=== PATIENT | male | born 1945 | race Caucasian/White ===

== ENCOUNTER → 2023-05-16 10:29 | Outpatient (REF) | payer MEDICARE, BC, SELFPAY ==
[2023-05-16 11:40] LABS: ALT (SGPT) 26 U/L (0-50); AST (SGOT) 29 U/L (17-59); Alkaline Phosphatase 81 U/L (38-126); Blood Urea Nitrogen 17 mg/dl (9-20); Calcium 8.8 mg/dl (8.4-10.2); Carbon Dioxide 22 mmol/L (22-30); Chloride 108 mmol/L (98-107); Direct Bilirubin 0.1 mg/dl (0.0-0.4); Glucose 131 mg/dl (70-99); HDL Cholesterol 49 mg/dl; LDL Cholesterol, Calculated 51 mg/dl; Potassium 4.2 mmol/L (3.5-5.1); Sodium 136 mmol/L (135-145); Total Cholesterol 128 mg/dl (50-199); Total Protein 6.7 g/dl (6.3-8.2); Triglyceride 144 mg/dl (10-149); Very Low Density Lipoprotein 28 mg/dl (0-30); eGFR > 60.00
== END ==
LOC: REG 10:29
PROVIDERS: ATTENDING PHYSICIAN Internal Medicine; FAMILY PHYSICIAN Internal Medicine
DX: E11.59 Type 2 diabetes mellitus with other circulatory complications (principal); E78.2 Mixed hyperlipidemia; I10 Essential (primary) hypertension; E66.9 Obesity, unspecified; I25.10 Atherosclerotic heart disease of native coronary artery without angina pectoris; E78.5 Hyperlipidemia, unspecified
CPT/HCPCS: 36415; 80053; 80061; 82248; 83036

== ENCOUNTER → 2023-08-20 12:17 | Outpatient (REF) | payer MEDICARE, BC, SELFPAY | LOC: RAD 12:17 | PROVIDERS: ATTENDING PHYSICIAN Nurse Practitioner Adult Health | DX: R05.9 Cough, unspecified (principal); R06.2 Wheezing; R06.09 Other forms of dyspnea | CPT/HCPCS: 71046 ==

== ENCOUNTER → 2023-08-23 10:31 | Outpatient (REF) | payer MEDICARE, BC, SELFPAY ==
[2023-08-23 10:41] VITALS: BP 144/91; BP_SYST 87
[2023-08-23 11:49] LABS: Body Fluid pH 7.39
[2023-08-23 11:56] LABS: Body Fluid Mononuclear 97.3 %; Body Fluid Polymorphonuclear 2.7 %; Body Fluid WBC 2144 /CUMM
[2023-08-23 12:07] LABS: Body Fluid Glucose 149 mg/dl; Body Fluid Protein 4.4 g/dl
[2023-08-23 12:20] LABS: Body Fluid Second Tech AMA
[2023-08-23 12:32] LABS: Body Fluid LDH 1239 U/L
== END ==
LOC: RADI 10:31
PROVIDERS: ATTENDING PHYSICIAN Nurse Practitioner Adult Health; FAMILY PHYSICIAN Internal Medicine
DX: D49.9 Neoplasm of unspecified behavior of unspecified site (principal); J91.0 Malignant pleural effusion
CPT/HCPCS: 88305; 32555; 71045; 71250; 82945; 83615; 83986; 84157; 87015; 87070; 87102; 87116; 87205; 87206; 88112; 88341; 88342; 89051

== ENCOUNTER → 2023-08-27 13:08 | Outpatient (REF) | payer MEDICARE, BC, SELFPAY | LOC: RAD 13:08 | PROVIDERS: ATTENDING PHYSICIAN Internal Medicine Critical Care Medicine | DX: R06.09 Other forms of dyspnea (principal); J90 Pleural effusion, not elsewhere classified | CPT/HCPCS: 71046 ==

== ENCOUNTER → 2023-08-31 14:32 | Outpatient (REF) | payer MEDICARE, BC, SELFPAY ==
[2023-08-31 14:55] LABS: % Basophils 0.2 % (0-2); % Eosinophils 1.3 % (0-6); % Immature Granulocytes 0.5 % (0-0.5); % Lymphocytes 24.2 % (20.5-51.1); % Monocytes 7.4 % (1.7-9.3); % Neutrophils 66.4 % (42.2-75.2); Absolute Eosinophils 0.2 10^3/uL (0-0.7); Absolute Immature Granulocytes 0.1 10^3/uL (0-0.05); Absolute Lymphocytes 4.1 10^3/uL (1.2-3.4); Absolute Monocytes 1.3 10^3/uL (0.1-0.6); Absolute Neutrophils 11.3 10^3/uL (1.4-6.5); Hematocrit 46.1 % (39.0-52.0); Hemoglobin 15.8 g/dL (13.0-18.0); Mean Corp Hgb Conc. 34.3 g/dL (33.0-37.0); Mean Corpuscular Hgb 30.2 pg (27.0-31.0); Mean Platelet Volume 11.8 fL (7.4-10.4); Nucleated Red Blood Cells % 0 % (-); Platelet Count 234 10^3/uL (130-400); Red Blood Cell Count 5.24 10^6/uL (4.70-6.10); Red Cell Dist. Width 12.9 % (11.5-14.5); White Blood Cell Count 17.1 10^3/uL (4.8-10.8)
[2023-08-31 15:17] LABS: ALT (SGPT) 42 U/L (0-50); AST (SGOT) 56 U/L (17-59); Albumin 3.8 g/dl (3.5-5.0); Alkaline Phosphatase 97 U/L (38-126); Blood Urea Nitrogen 21 mg/dl (9-20); Calcium 9.4 mg/dl (8.4-10.2); Carbon Dioxide 25 mmol/L (22-30); Chloride 105 mmol/L (98-107); Direct Bilirubin 0.4 mg/dl (0.0-0.4); Glucose 153 mg/dl (70-99); Potassium 3.6 mmol/L (3.5-5.1); Sodium 139 mmol/L (135-145); Total Bilirubin 0.7 mg/dl (0.2-1.3); Total Protein 6.4 g/dl (6.3-8.2); eGFR > 60.00
== END ==
LOC: REG 14:32
PROVIDERS: ATTENDING PHYSICIAN Internal Medicine Hematology & Oncology; FAMILY PHYSICIAN Internal Medicine
DX: C34.11 Malignant neoplasm of upper lobe, right bronchus or lung (principal); J91.0 Malignant pleural effusion; G89.3 Neoplasm related pain (acute) (chronic)
CPT/HCPCS: 36415; 80053; 82248; 85025

== ENCOUNTER → 2023-09-04 08:22 | Outpatient (REF) | payer MEDICARE, BC, SELFPAY ==
[2023-09-04 10:41] VITALS: BP 155/102; BP_SYST 78
[2023-09-04 11:22] VITALS: BP 139/80
== END ==
LOC: RADI 08:22
PROVIDERS: ATTENDING PHYSICIAN Nurse Practitioner Family; FAMILY PHYSICIAN Internal Medicine
DX: C34.11 Malignant neoplasm of upper lobe, right bronchus or lung (principal); J91.0 Malignant pleural effusion
CPT/HCPCS: 32555; 71045; 71046

== ENCOUNTER → 2023-09-06 10:21 | Outpatient (REF) | payer MEDICARE, BC, SELFPAY ==
[2023-09-06 10:50] VITALS: BP 135/82; BP_SYST 87
[2023-09-06] MEDS: ANCEF 10 IV (11:23)
[2023-09-06 12:28] VITALS: BP 136/79
== END ==
LOC: RADI 10:21
PROVIDERS: ATTENDING PHYSICIAN Internal Medicine Hematology & Oncology; FAMILY PHYSICIAN Internal Medicine
DX: C34.11 Malignant neoplasm of upper lobe, right bronchus or lung (principal)
CPT/HCPCS: 36561; 76937; 77001; 99152; 99153; C1788

== ENCOUNTER 2023-09-09 17:48 | Inpatient (IN) | payer MEDICARE, BC, SELFPAY ==
[2023-09-09] VITALS (13 sets, daily range): BP systolic 109–166; BP diastolic 57–92; BMI 32.6
[2023-09-09 13:05] LABS: % Basophils 0.4 % (0-2); % Eosinophils 3.7 % (0-6); % Immature Granulocytes 0.4 % (0-0.5); % Lymphocytes 22.1 % (20.5-51.1); % Monocytes 10.4 % (1.7-9.3); Absolute Basophils 0.1 10^3/uL (0-0.2); Absolute Eosinophils 0.5 10^3/uL (0-0.7); Absolute Immature Granulocytes 0.1 10^3/uL (0-0.05); Absolute Lymphocytes 2.7 10^3/uL (1.2-3.4); Absolute Monocytes 1.3 10^3/uL (0.1-0.6); Absolute Neutrophils 7.8 10^3/uL (1.4-6.5); Hematocrit 44.2 % (39.0-52.0); Hemoglobin 15.3 g/dL (13.0-18.0); Mean Corp Hgb Conc. 34.6 g/dL (33.0-37.0); Mean Corpuscular Hgb 30.1 pg (27.0-31.0); Mean Corpuscular Volume 86.8 fL (80.0-94.0); Mean Platelet Volume 11.3 fL (7.4-10.4); Nucleated Red Blood Cells % 0 % (-); Platelet Count 195 10^3/uL (130-400); Red Blood Cell Count 5.09 10^6/uL (4.70-6.10); Red Cell Dist. Width 13.3 % (11.5-14.5); White Blood Cell Count 12.3 10^3/uL (4.8-10.8)
[2023-09-09 13:24] LABS: Blood Urea Nitrogen 16 mg/dl (9-20); Calcium 9.3 mg/dl (8.4-10.2); Carbon Dioxide 25 mmol/L (22-30); Chloride 105 mmol/L (98-107); Estimated Creatinine Clearance 86 ml/min; Glucose 106 mg/dl (70-99); Potassium 4.6 mmol/L (3.5-5.1); Sodium 138 mmol/L (135-145); eGFR > 60.00
--- NOTE | 2023-09-09 14:36 | ED.GENMED ---
History of Present Illness
General
Chief Complaint: Breathing Problem
Source: patient
Exam Limitations: none
Time Seen by Provider: 09/09/23 12:05
Nursing documentation reviewed up to this point in time: agreed with
History of Present Illness
History of Present Illness:
77-year-old male with past medical history of diabetes, lung cancer with recurrent pleural effusion presented to the emergency department today with concerns of worsening shortness of breath over the past few days. Scheduled to have chemo next week
just had a port recently placed. Claims that shortness of breath is worsening with any degree of exertion at this point. Denies any fevers nausea vomiting diarrhea.
Review of Systems
Review of Systems
Allergies reviewed?: Yes
All Other Systems: ROS reviewed and negative except as documented in HPI and ROS
Phy Exam
Physical Exam
Physical Exam:
GENERAL: Alert , in no apparent distress
EYE: pupils equal and reactive
NECK: Supple, no significant adenopathy.
ENT: o/p clr, mmm.
CARDIAC: Regular rate and rhythm .
LUNGS: Diminished lung sounds to the right side otherwise no acute respiratory distress, no wheezes/rales/rhonchi
ABDOMEN: Soft, without focal tenderness, no r/g, no cvat
NEUROLOGICAL: Alert and oriented, no focal neuro deficits
SKIN: Warm and dry, skin intact.
MUSCULOSKELETAL: No edema, well perfused.
PSYCH: Normal and appropriate interaction.
Scores
Heart Failure Risk
Heart Failure Risk Score: Not Applicable
Course
Orders/Labs/Results
Orders:
Orders
09/09/23 11:38
Electrocardiogram (*1) Urgent
Reason for Study: Other
Other Reason for Exam: Respiratory Distress
EKG- Treatment ONCE
CR Chest - 2 Views Urgent
Comment:
Reason For Exam: respiratory distress
09/09/23 12:55
BMP [Basic Metabolic Panel] Urgent
CBC/With Diff [Complete Blood Count/With Diff] Urgent
Abnormal Lab Results
09/09/23
12:55
WBC 12.3 H 10^3/uL
(4.8-10.8)
MPV 11.3 H fL
(7.4-10.4)
Abs Immat Gran (auto) 0.1 H 10^3/uL
(0-0.05)
Absolute Neuts (auto) 7.8 H 10^3/uL
(1.4-6.5)
Absolute Monos (auto) 1.3 H 10^3/uL
(0.1-0.6)
Monocytes % 10.4 H %
(1.7-9.3)
Glucose 106 H mg/dl
(70-99)
09/09/23 12:55
09/09/23 12:55
Vital Signs
Initial and Last Documented VS:
Initial Vital Signs
Temp Pulse Resp BP Pulse Ox
98.4 F 74 16 158/85 97
09/09/23 11:36 09/09/23 11:36 09/09/23 11:36 09/09/23 11:36 09/09/23 11:36
Last Documented Vital Signs
Temp Pulse Resp BP Pulse Ox
98.2 F 81 18 113/65 92
09/09/23 14:34 09/09/23 14:34 09/09/23 14:34 09/09/23 14:34 09/09/23 14:34
MDM/Problems Addressed
MDM/Problems Addressed:
77-year-old male presenting to the emergency department today with concerns of worsening shortness of breath over the past few days. Patient was found to have a large effusion to his right lung. Plan to have him admitted and have this drained as
symptoms are likely related to this.
*Critical Care Note
Total Time (30-74mins, 75-104mins- exclusive of procedures): Not Applicable
ED Attending Note
-
Portions of this chart may have been created with voice recognition software.� Occasional wrong word or��sound alike� substitutions may have occurred due to the inherent limitations of voice recognition software.
Discharge Plan
Departure
Patient Disposition: Admit
Date of Disposition: 09/09/23
Time of Disposition: 14:43
Admit to: Telemetry
Admit to doctor: Raman
Presentation/result/management discussed w/ accepting MD/DO: Hospitalist
Patient with high blood pressure during this ER visit?: No
Condition: Good
Covid-19: Not Applicable
Discharge Problem:
Pleural effusion
Prescriptions:
No Action
losartan 50 MG tablet
50 mg PO DAILY
Stool Softener 50 MG capsule
50 mg PO DAILY
omeprazole 40 MG capsule,delayed release(DR/EC)
40 mg PO DAILY
naproxen [EC-Naproxen] 500 MG tablet,delayed release (DR/EC)
500 mg PO PRN PRN (Reason: pain)
aspirin 81 MG tablet,chewable
81 mg PO DAILY
finasteride 5 MG tablet
5 mg PO HS
atorvastatin 40 mg Tablet
40 mg PO HS
amlodipine 5 mg Tablet
5 mg PO DAILY
multivitamin Tablet
1 tab PO DAILY
famotidine 40 mg Tablet
40 mg PO HS
albuterol sulfate 90 mcg/actuation Hfa Aerosol Inhaler
1 inh INHALATION PRN PRN (Reason: sob/wheezing)
diazepam 5 mg Tablet
5 mg PO PRN PRN (Reason: restless leg)
guaifenesin [Mucinex] 1,200 mg Tablet Extended Release 12hr
1,200 mg PO DAILY
metformin 500 mg Tablet Extended Release 24 Hr
500 mg PO QPM
Referrals:
Star Silva MD [Family Provider] -
Interventions
Interventions:
*Risk Screen - Suicide Last Done: 09/09/23 11:36
*General Assessment Last Done: 09/09/23 12:04
*Neglect/Abuse Screening Last Done: 09/09/23 11:36
ED- Fall Risk Assessment Last Done: 09/09/23 12:25
*ED COVID-19 Vaccine History Last Done: 09/09/23 12:04
ED- Cardiac Assessment Last Done: 09/09/23 12:05
ED- Pulmonary Assessment Last Done: 09/09/23 12:05
Discharge Date and Time
Print Language: PORTUGUESE
--- NOTE | 2023-09-09 14:48 | EDRN ---
the pt pressed the call oliveira and this RN entered the pts room and the pt stated this RN 'I fell a little short of breath', this RN notified Ed Luan and 3L NC was placed, the pts Sp02 went from 92-96%, will continue to monitor the pt closely
--- NOTE | 2023-09-09 16:09 | HPS.HSE ---
Addendum entered and electronically signed by Baldomero Camargo MD 09/09/23 17:27:
I personally performed a history and physical exam of the patient and discussed management with the resident. I reviewed the resident's note and agree with the documented findings and plan of care HPI/CC.
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 Await PET scan. Await initiation of chemotherapy which is planned for next week. Patient was symptomatic because of pleural effusions and was tapped already twice.
The last one was 4 days ago. Presents with a gradual increase of shortness of breath. He prefers to lie to the left side. No chest pain but he has a cough. No fever.
He is quite active bronchospasm going on. He is known to have lung disease and uses inhalers at home. Decrease chest sounds on the right side. No acute respiratory distress.
Leukocytosis noted.
No significant lower extremity edema or JVD. Doubt clinical heart failure. With no chest pain or tachycardia another obvious worsening of pleural effusion compared to recent chest x-ray suspect this more is recurrence of pleural effusion than any
thromboembolic issue.
Cannot rule out pneumonia. Started empiric antibiotics. Check procalcitonin.
Consult IR for therapeutic thoracentesis.
Original Note:
Family Physician
-
Family Physician: Chang Silva
Chief Complaint
-
Worsening SOB
History of Present Illness
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 He presents to the ED with worsening of shortness of breath from this morning. He does not report any fevers/chills, cough,
hemoptysis, nausea or vomiting. He has right-sided chest pain which gets worse with breathing but is alleviated when lying on his left side. He has been using CPAP at [facility] from many years ago due to MARY BETH. Patient has underwent thoracentesis x 2
(first time: 08/22, repeat: 09/03), each time yielding 2000 cc of serosanguineous pleural fluid (4000cc total). Patient is under supervision of Dr. Otero and had his first chemotherapy session scheduled for (09/12). His chemotherapy port
was placed on 09/05 at .
Medical History
Past Medical History
Past Medical History: Reports CAD, HTN, Hypercholesterolemia and NIDDM
Additional Past Medical History:
MARY BETH, diverticulitis (2009)
Past Surgical History: Reports Other
Additional Past Surgical History:
Umbilical hernia repair,decompression of lumbar, coronary artery stenting, right inguinal hernia repair
Social History
Tobacco: Smoker (Quit tobacco smoking at age 49 (1 pack daily for 35 years)-has been smoking weed since then)
Alcohol: Daily (Drinks 1 glass daily)
Personal:
Living: With Family
Family History
Family History: Cancer (Mother from lung cancer)
Allergies / Home Medications
Allergies reflects when Allergies were last updated in [facility].
Home Medications with original date entered in [facility]
Allergy/Medication List:
Allergies
Allergy/AdvReac Type Severity Reaction Status Date / Time
No Known Drug Allergies Allergy Unknown Verified 09/09/23 11:38
Home Medications
aspirin 81 mg chewable tablet 81 mg PO QPM 10/06/20
docusate sodium 50 mg capsule (Stool Softener) 100 mg PO HS 10/06/20
finasteride 5 mg tablet 5 mg PO HS 10/06/20
losartan 50 mg tablet 50 mg PO QPM 10/06/20
naproxen 500 mg tablet,delayed release (EC-Naproxen) 500 mg PO DAILYPRN PRN mild pain 10/06/20
omeprazole 40 mg capsule,delayed release 40 mg PO DAILY 10/06/20
amlodipine 5 mg tablet 5 mg PO HS 10/17/22
atorvastatin 40 mg tablet 40 mg PO HS 10/17/22
albuterol sulfate 90 mcg/actuation aerosol inhaler 1 inh inhalation R QIDPRN PRN sob/wheezing 08/27/23
diazepam 5 mg tablet 5 mg PO HSPRN PRN restless leg 08/27/23
famotidine 40 mg tablet 40 mg PO HS 08/27/23
guaifenesin 1,200 mg tablet, extended release 12 hr (Mucinex) 1,200 mg PO DAILY 08/27/23
metformin 500 mg tablet,extended release 24 hr 1,000 mg PO QPM 08/27/23
multivitamin 1 tab PO DAILY 08/27/23
atezolizumab 840 mg/14 mL (60 mg/mL) intravenous solution 0 mg IV UD 09/09/23
carboplatin 150 mg intravenous solution 0 mg IV UD 09/09/23
etoposide phosphate 100 mg intravenous solution 0 mg IV UD 09/09/23
lidocaine-prilocaine 2.5 %-2.5 % topical cream 1 applic topical DAILYPRN PRN port 09/09/23
loratadine 10 mg tablet (Claritin) 10 mg PO UD 09/09/23
ondansetron 8 mg disintegrating tablet 8 mg PO [id number] PRN nasuea 09/09/23
Review of Systems
-
History Source: Patient and Family
A 12 point ROS was completed and negative except as noted: Yes
Constitutional: Reports Weight Loss (22 pounds over 2 months.)
Respiratory: Reports Trouble Breathing
Physical Exam
Vital Signs
Vital Signs
Temp Pulse Resp BP Pulse Ox
98.2 F 92 27 154/87 96
09/09/23 14:34 09/09/23 14:46 09/09/23 14:46 09/09/23 14:46 09/09/23 14:46
Physical Exam
General: Well Developed, Well Nourished and Respiratory Distress
HEENT: NormoCephalic, Anicteric, Moist mucous membranes and Other (mallampati score grade 3)
Respiratory: Decreased Breath Sounds (decreased breath sounds on right side)
GI: Soft and Distended
Rectal: Brown
Musculoskeletal: No Clubbing, No Cyanosis and No Edema
Skin: Warm
Neuro: Awake, Alert, Oriented and AO x 3
Hematologic/Lymphatic: No Lymphadenopathy
Psych: Calm and Intact Judgment/Insight
Laboratory Results
-
09/09/23 12:55
09/09/23 12:55
Data Reviewed
-
Critical Care Time (in minutes): 30
Impression/Plan
-
IMPRESSION:
Worsening SOB secondary to right-sided malignant pleural effusion--possible pneumonia
PLAN:
Place on supplemental oxygen--continue to monitor V/S
Continue to monitor white cell count
Consult IR for thoracentesis
Consult hematology service
Limit fluid intake
--- NOTE | 2023-09-09 18:40 | PTCARENOTE ---
Pt arrived from ED at approx 1840. Pt walked from stretcher to bed. Pt came up on 3L O2 NC. VSS. Pt with no complaints at this time. Call oliveira is within reach.
[2023-09-09 18:53] LABS: Procalcitonin 0.89 ng/ml (0.0-0.25)
[2023-09-09] MEDS: COZAAR 50 MG PO (19:51)
[2023-09-09] MEDS: LOVENOX 40 MG SC (19:51)
[2023-09-09] MEDS: STERILE WATER FOR INJECTION 10 ML IV (19:54)
[2023-09-09] MEDS: ROCEPHIN 1000 MG IV (19:54)
[2023-09-09] MEDS: LOW STRENGTH ASPIRIN 81 MG PO (19:54)
[2023-09-09] MEDS: VIBRAMYCIN 100 MG PO (19:55)
[2023-09-09] MEDS: DUONEB 3 ML INH (20:44)
[2023-09-09 21:39] LABS: Glucose - Point of Care 146 mg/dl (70-99)
[2023-09-09] MEDS: LIPITOR 40 MG PO (21:44)
[2023-09-09] MEDS: PEPCID 40 MG PO (21:44)
[2023-09-09] MEDS: PROSCAR 5 MG PO (21:44)
[2023-09-09] MEDS: COLACE 100 MG PO (21:44)
[2023-09-09] MEDS: NORVASC 5 MG PO (21:44)
[2023-09-09] MEDS: MELATONIN 5 MG PO (22:12)
[2023-09-10 05:56] LABS: Hematocrit 42.3 % (39.0-52.0); Hemoglobin 14.3 g/dL (13.0-18.0); Mean Corp Hgb Conc. 33.8 g/dL (33.0-37.0); Mean Corpuscular Hgb 30.4 pg (27.0-31.0); Mean Platelet Volume 12.1 fL (7.4-10.4); Platelet Count 182 10^3/uL (130-400); Red Cell Dist. Width 13.2 % (11.5-14.5); White Blood Cell Count 10.3 10^3/uL (4.8-10.8)
[2023-09-10 07:00] VITALS: BP 144/77
[2023-09-10] MEDS: DUONEB 3 ML INH ×2 (07:48→11:37)
[2023-09-10] MEDS: MUCINEX 1200 MG PO (07:54)
[2023-09-10] MEDS: PROTONIX 40 MG PO (07:54)
[2023-09-10] MEDS: VIBRAMYCIN 100 MG PO (07:54)
--- NOTE | 2023-09-10 08:15 | W.PN.UPDATE ---
Update Note
Progress Note Update
Interprofessional Consultation
Dept of Radiology
Dx: Right Pleural effusion
IR was consulted to perform right sided thoracentesis for malignant pleural effusion. The is requesting a Asept catheter. We discussed that this can not be done today and possibly not until Sunday. We offered a therapeutic thoracentesis
today but the patient and would like to hold off and wait until Asept placement. If he is discharged in the interim we would need an outpatient prescription for the procedure as well as home hospice approval (I am told the patient's niece owns
a hospice company and will be managing this). The was also advised she would need to know who the managing physician would be. This physician dictates drainage parameters
and provides orders for days and amounts to drain by hospice team.
[2023-09-10 08:18] LABS: Glucose - Point of Care 151 mg/dl (70-99)
[2023-09-10 08:28] LABS: Glycohemoglobin (HgbA1c) 7.2 % (4.0-5.6)
[2023-09-10] MEDS: NOVOLOG FLEXPEN-LOW RESISTANCE 1 UNITS SC (09:49)
[2023-09-10] MEDS: MORPHINE SULFATE 1 MG IV (10:13)
--- NOTE | 2023-09-10 11:30 | CM ---
Addendum entered by Margarte Medina 09/10/23 14:39:
[facility] sent referral at patient request. CM also updated Oncology about request and need for further documentation on referral. CM will update nursing and physician.
Addendum entered by Margaret Medina 09/10/23 13:53:
Patient and patient have now decided to try chemo. they will also have the Asept cath placed on sun. Patient requesting VN for assistance in draining cath and she is checking with patient noni about the recommendations for VN following
review of PAC data. Patient eager to go home today. IMM completed by admissions on sunday and also provided to patient to review today. CM will continue to follow for discharge planning needs.
Plan; home with VN and follow up with oncology/IR
Original Note:
Patient seen at bedside with physician, and patient . Patient indicated that he wants to go home with [facility], and patient noni works there. CM received call from Ruth at [facility] [phone]/fax [phone]. Medical
director at [facility] is Dr. Inna Cadena [phone]. CM updated physician and faxed to [facility] information sheet and initial information. Patient and to talk to Oncology and Physicians again about discharge plan. Patient asking to go home
today. IMM provided to patient to review when medical treatment plan decided. CM will continue to follow for discharge planning needs.
Plan; home with hospice with [facility]
[2023-09-10 12:42] LABS: Glucose - Point of Care 143 mg/dl (70-99)
[2023-09-10] MEDS: NOVOLOG FLEXPEN-LOW RESISTANCE SC (12:42)
--- NOTE | 2023-09-10 14:53 | W.PN.HOSP.TC ---
Addendum entered and electronically signed by Freida Fuentes MD 09/10/23 16:33:
I saw and evaluated the patient independently. I reviewed the resident�s note and agree with findings and plan as documented by Dr. Andre.
GENERAL: well developed, well nourished, male in no apparent distress
HEENT: No O2 requirements
HEART: regular rate and rhythm, +S1, +S2
LUNGS : decreased breath sounds bilaterally
ABDOM: soft, nontender, nondistended, + bowel sounds
EXT: no cyanosis, clubbing, or edema
NEUROLOGIC: grossly intact
Worsening shortness of breath-- Most probably due to malignant right-sided pleural effusion--IR was consulted but thoracentesis was not done today-- patient and family want to wait till Sunday to have Asept/Pleurx done--doubt PNA (no cough, no O2
requirements, no fevers, normal WBC)--stop ABX, do not need at d/c
Recently diagnosed small cell lung cancer--consult oncology and apprec input--port was placed on09/05--patient to consider first session of chemo on
essential HTN -- cont meds with parameters
type 2 DM -- cont metformin
Patient and initially wanted to go home with hospice. After much discussion with Dr. Otero (patient's primary oncologist), he has decided to continue with treatment moving forward. In fact, on September 06, 2023 he had a port placed to do just
that. He will however, get a thoracentesis and Asept/Pleurx catheter placed this coming Sunday, September 12, 2023.
Original Note:
Today's Communication/Plan
-
Plan is to discharge home with VN today--- consider OLE/Pleurx on Sunday-- Dr. Otero is aware of patient's decision regarding chemo
Assessment / Plan
Assessment / Plan
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
Worsening shortness of breath: Most probably due to malignant right-sided pleural effusion-IR was consulted but thoracentesis was not done today-- patient and family wants to wait till Sunday to have Asept/Pleurx done
Possible pneumonia--continue Zosyn -- monitor white cell count and body temperature
Recently diagnosed small cell lung cancer--consult oncology--port was placed on09/05--patient to consider first session of chemo on
Anticipated Discharge: Today
Subjective/Interval History
-
Date of Service: September 10, 2023
Patient is alert and oriented. Is overwhelmed with the decisions he has to make regarding his treatment. Still finds breathing difficult.
Objective Data
-
Labs:
Laboratory Results
09/10/23
05:27
WBC 10.3
Hgb 14.3
Hct 42.3
Plt Count 182
Vital Signs:
Vital Signs
Temp Pulse Resp BP Pulse Ox
97.7 F 91 16 144/77 93
09/10/23 07:00 09/10/23 11:39 09/10/23 11:39 09/10/23 07:00 09/10/23 11:39
I&O
09/09/23 09/10/23 09/11/23
06:59 06:59 06:59
Intake Total 180 / 180
Balance 180 / 180
Review of Systems
-
History Source: Patient
All other systems: Reviewed and negative
Constitutional: Reports Weakness
Respiratory: Reports Trouble Breathing
Psych: Reports Other (overwhelmed)
Physical Exam
-
General: Respiratory Distress and Pain
HEENT: Normocephalic and Atraumatic
Respiratory: Decreased Breath Sounds (right side)
Cardiac: Regular Rhythm and S1/S2
GI: Soft, Nontender and Normal Bowel Sounds
Musculoskeletal: No Clubbing, No Cyanosis and No Edema
Skin: Warm
Neuro: Awake, Alert, Oriented and AO x 3
Hematologic / Lymphatic: No Lymphadenopathy
--- NOTE | 2023-09-10 14:54 | CON.ONC ---
Documented by User: CINDY Dean 09/10/23 15:23
Impression
Impression
Extensive stage small cell carcinoma
recurrent malignant pleural effusion
Plan
Plan
IR consult for Pleurx catheter placement
I will reschedule 1st line systemic palliative chemo/checkpoint inhibitor therapy upon discharge
Patient History
History of Present Illness
Consult regarding extensive stage small cell lung cancer.
77yo M known to Dr. Saenz for management of extensive stage small cell lung cancer who presented to ER with worsening shortness of breath. He also notes right sided chest pain that is exacerbated with deep inspiration and alleviated
by lying on his left side. He underwent thoracentesis 08/22 yielding 2000cc with cytology positive small cell carcinoma and 09/03 yielding 4000cc. 09/09/2023 cxr showed moderate to large partially loculated right pleural effusion with associated
atelectasis and/or pneumonia, progressed. He has been admitted and started on abx.
He presented July 2023 with a 3 month history of cough, sob, fatigue, and decreased appetite with 12lb weight loss. July cxr showed RUL lung volume loss concerning for obstructed bronchus in addition to a small to moderate partially loculated right
pleural effusion. 08/22 CT chest showed a large lobulated right upper lobe mass/malignancy extending to the right hilum with mediastinal lymphadenopathy and lobulated possibly malignant right-sided pleural thickening, and additional suspicious
subcentimeter peripheral right lung nodules. Diagnostic right thoracentesis 08/23/2023 was positive for small cell lung carcinoma. He has been using Percocet at home to control cancer pain. Mediport was placed 09/03 with plan for 1st line palliative
systemic therapy this week.
Afebrile, no hypoxia or hypotension
Past-Medical/Surgical History
PMH CAD, HTN, HLD, MARY BETH on CPAP, PLATINUM, colon polyps
PSH: cardiac stent 2001. lumbar spine decompression 2014, umbilical hernia repair 2020, ankle fracture repair 2021, facial epidermal cyst removal
Social former smoker, quit 1998. ETOH 2x/daily. Denies recreational drugs. [employer]. Lives with . Retired.
Family: Mother small cell lung cancer. Father CAD, CVA
Patient Medication
�Medication �Instructions �Recorded �Confirmed �Last Taken �Type
aspirin 81 mg chewable tablet 81 mg PO QPM Blood Clot 10/06/20 09/09/23 09/08/23 History
Prevention/Tx
docusate sodium 50 mg capsule 100 mg PO HS Constipation 10/06/20 09/09/23 09/08/23 History
(Stool Softener)
finasteride 5 mg tablet 5 mg PO HS Urinary Issue 10/06/20 09/09/23 09/08/23 History
losartan 50 mg tablet 50 mg PO QPM Blood Pressure 10/06/20 09/09/23 09/08/23 History
naproxen 500 mg tablet,delayed 500 mg PO DAILYPRN PRN mild pain 10/06/20 09/09/23 09/09/23 History
release (EC-Naproxen)
omeprazole 40 mg capsule,delayed 40 mg PO DAILY Gastrointestinal 10/06/20 09/09/23 09/09/23 History
release Issue
amlodipine 5 mg tablet 5 mg PO HS Blood Pressure 10/17/22 09/09/23 09/08/23 History
atorvastatin 40 mg tablet 40 mg PO HS High Cholesterol 10/17/22 09/09/23 09/08/23 History
albuterol sulfate 90 mcg/actuation 1 inh inhalation R QIDPRN PRN 08/27/23 09/09/23 09/05/23 History
aerosol inhaler sob/wheezing
diazepam 5 mg tablet 5 mg PO HSPRN PRN restless leg 08/27/23 09/09/23 09/05/23 History
famotidine 40 mg tablet 40 mg PO HS Gastrointestinal Issue 08/27/23 09/09/23 09/08/23 History
guaifenesin 1,200 mg tablet, 1,200 mg PO DAILY Congestion 08/27/23 09/09/23 09/09/23 History
extended release 12 hr (Mucinex)
metformin 500 mg tablet,extended 1,000 mg PO QPM Diabetes 08/27/23 09/09/23 09/08/23 History
release 24 hr
multivitamin 1 tab PO DAILY Supplement 08/27/23 09/09/23 09/09/23 History
atezolizumab 840 mg/14 mL (60 0 mg IV UD Cancer 09/09/23 09/09/23 Unknown History
mg/mL) intravenous solution
carboplatin 150 mg intravenous 0 mg IV UD Cancer 09/09/23 09/09/23 Unknown History
solution
etoposide phosphate 100 mg 0 mg IV UD Cancer 09/09/23 09/09/23 Unknown History
intravenous solution
lidocaine-prilocaine 2.5 %-2.5 % 1 applic topical DAILYPRN PRN port 09/09/23 09/09/23 Unknown History
topical cream
loratadine 10 mg tablet (Claritin) 10 mg PO UD allergies 09/09/23 09/09/23 Unknown History
ondansetron 8 mg disintegrating 8 mg PO [id number] PRN nausea 09/09/23 09/09/23 Unknown History
tablet
morphine 10 mg/5 mL oral solution 5 mg (2.5 mL) PO Q4H PRN shortness 09/10/23 Unknown Rx
of breath, pain #100 mL
Active Medications
Generic Name Dose Route Start Last Admin
Trade Name Freq PRN Reason Stop Dose Admin
Acetaminophen 650 mg 09/09/23 18:36
Acetaminophen 325 Mg Tablet PO 10/07/23 18:35
Q4HPRN PRN
mild pain /fever >100.4
Albuterol 2 puff 09/09/23 18:36
Albuterol Hfa [90 Mcg/Dose] Inhaler INH
R QIDPRN PRN
sob/wheezing
Protocol
Albuterol/Ipratropium 3 ml 09/09/23 20:00 09/10/23 11:37
Ipratropium 0.5/Albuterol 3 Mg (3 Ml Ampul) INH 3 ml
R QID SADIE Administration
Protocol
Albuterol/Ipratropium 3 ml 09/09/23 18:36
Ipratropium 0.5/Albuterol 3 Mg (3 Ml Ampul) INH
R Q4HPRN PRN
shortness of breath/wheeze
Protocol
Amlodipine Besylate 5 mg 09/09/23 22:00 09/09/23 21:44
Amlodipine 5 Mg Tablet PO 10/07/23 21:59 5 mg
HS SADIE Administration
Aspirin 81 mg 09/09/23 19:00 09/09/23 19:54
Aspirin 81 Mg Chewable Tablet PO 10/07/23 18:59 81 mg
QPM SADIE Administration
Atorvastatin Calcium 40 mg 09/09/23 22:00 09/09/23 21:44
Atorvastatin (Lipitor) 40 Mg Tablet PO 10/07/23 21:59 40 mg
HS SADIE Administration
Ceftriaxone Sodium 1,000 mg 09/09/23 20:00 09/09/23 19:54
Ceftriaxone 1000 Mg / 10 Ml Vial IV 1,000 mg
Q24H SADIE Administration
Dextrose 12.5 grams 09/09/23 18:36
Dextrose 50% (0.5 Grams/Ml) 50 Ml Syringe IV 10/07/23 18:35
[id number] PRN
hypoglycemia
Protocol
Diazepam 5 mg 09/09/23 18:36
Diazepam 5 Mg Tablet PO 10/07/23 18:35
HSPRN PRN
restless leg
Docusate Sodium 100 mg 09/09/23 22:00 09/09/23 21:44
Docusate Sodium 100 Mg Capsule PO 10/07/23 21:59 100 mg
HS SADIE Administration
Doxycycline Hyclate 100 mg 09/09/23 20:00 09/10/23 07:54
Doxycycline 100 Mg Capsule PO 100 mg
Q12 SADIE Administration
Enoxaparin Sodium 40 mg 09/09/23 18:36 09/09/23 19:51
Enoxaparin Sodium 40 Mg/0.4 Ml Syringe SC 10/07/23 18:35 40 mg
QPM SADIE Administration
Famotidine 40 mg 09/09/23 22:00 09/09/23 21:44
Famotidine 40 Mg Tablet PO 10/07/23 21:59 40 mg
HS SADIE Administration
Finasteride 5 mg 09/09/23 22:00 09/09/23 21:44
Finasteride 5 Mg Tablet PO 10/07/23 21:59 5 mg
HS SADIE Administration
Glucagon 1 mg 09/09/23 18:36
Glucagon 1 Mg Vial IM 10/07/23 18:35
PRN PRN
hypoglycemia
Protocol
Guaifenesin 1,200 mg 09/10/23 08:00 09/10/23 07:54
Guaifenesin 600 Mg Extended Release Tablet PO 10/08/23 07:59 1,200 mg
DAILY SADIE Administration
Insulin Aspart 0 units 09/10/23 07:30 09/10/23 12:42
Insulin Aspart Low Resistance 300 Units/3 Ml Pen.Injctr SC 10/08/23 07:29 Not Given
AC SADIE
Protocol
Loratadine 10 mg 09/09/23 18:36
Loratadine 10 Mg Tablet PO 10/07/23 18:35
UD SADIE
Losartan Potassium 50 mg 09/09/23 19:00 09/09/23 19:51
Losartan 50 Mg Tablet PO 10/07/23 18:59 50 mg
QPM SADIE Administration
Morphine Sulfate 1 mg 09/10/23 09:57 09/10/23 10:13
Morphine 2 Mg/Ml Syringe IV 09/24/23 09:56 1 mg
Q4HPRN PRN Administration
severe pain
Pantoprazole Sodium 40 mg 09/10/23 08:00 09/10/23 07:54
Pantoprazole 40 Mg Delayed Release Tablet PO 10/08/23 07:59 40 mg
DAILY SADIE Administration
Sodium Chloride 0 flush 09/09/23 19:00
Sodium Chloride 0.9% (Flush) Syringe IV 10/07/23 18:59
PER PROTOCOL SADIE
Sterile Water 10 ml 09/09/23 20:00 09/09/23 19:54
Sterile Water For Injection 10 Ml Vial IV 10/07/23 19:59 10 ml
Q24H SADIE Administration
Review of Systems
-
Review of systems notable for HPI, otherwise negative
Physical Exam
Labs
Lab Results
WBC 10.3 10^3/uL (4.8-10.8) 09/10/23 05:27
RBC 4.70 10^6/uL (4.70-6.10) 09/10/23 05:27
Hgb 14.3 g/dL (13.0-18.0) 09/10/23 05:27
Hct 42.3 % (39.0-52.0) 09/10/23 05:27
MCV 90.0 fL (80.0-94.0) 09/10/23 05:27
MCH 30.4 pg (27.0-31.0) 09/10/23 05:27
MCHC 33.8 g/dL (33.0-37.0) 09/10/23 05:27
RDW 13.2 % (11.5-14.5) 09/10/23 05:27
Plt Count 182 10^3/uL (130-400) 09/10/23 05:27
MPV 12.1 fL (7.4-10.4) H 09/10/23 05:27
Abs Immat Gran (auto) 0.1 10^3/uL (0-0.05) H 09/09/23 12:55
Absolute Neuts (auto) 7.8 10^3/uL (1.4-6.5) H 09/09/23 12:55
Absolute Lymphs (auto) 2.7 10^3/uL (1.2-3.4) 09/09/23 12:55
Absolute Monos (auto) 1.3 10^3/uL (0.1-0.6) H 09/09/23 12:55
Absolute Eos (auto) 0.5 10^3/uL (0-0.7) 09/09/23 12:55
Absolute Basos (auto) 0.1 10^3/uL (0-0.2) 09/09/23 12:55
Immature Gran % 0.4 % (0-0.5) 09/09/23 12:55
Neutrophils % 63.0 % (42.2-75.2) 09/09/23 12:55
Lymphocytes % 22.1 % (20.5-51.1) 09/09/23 12:55
Monocytes % 10.4 % (1.7-9.3) H 09/09/23 12:55
Eosinophils % 3.7 % (0-6) 09/09/23 12:55
Basophils % 0.4 % (0-2) 09/09/23 12:55
Creatinine 0.9 mg/dL (0.7-1.3) 09/09/23 12:55
Vital Signs
Vital Signs
Temp Pulse Resp BP Pulse Ox
97.7 F 91 16 144/77 93
09/10/23 07:00 09/10/23 11:39 09/10/23 11:39 09/10/23 07:00 09/10/23 11:39

Documented by User: Beatrice Saenz MD 09/10/23 17:57
Plan
Plan
Well-known to me from outpt setting.
Discussed management of extensive stage small cell lung cancer.
With good performance status and no disease outside the lung (although staging not complete), strongly encouraged pt to proceed with treatment.
We reviewed survival data from clinical trial of carbo/etoposide/atezolizumab including unexpected finding of improved outcomes for pts >65 vs <65.
After discussion, pt and are comfortable proceeding with chemotherapy.
IR consult for outpt Pleurx catheter placement, tentatively planned for 09/10.
FOR NOW I AM LEAVING HIM ON THE SCHEDULE TO START CHEMO 09/11.
[2023-09-10 15:00] VITALS: BP 139/79
--- NOTE | 2023-09-10 16:52 | W.DCSUMMARY ---
Addendum entered and electronically signed by Freida Fuentes MD 09/10/23 18:49:
Read, reviewed, and agree with the following exceptions. See same day progress note for additional details. Time spent coordinating care, DC planning, review of DC plan of care with resident, transition of care, review of records in EMR, med rec,
consults, notes, d/w consultants, nursing, family, and CM = 40 minutes.
There was discussion by the patient and his that the patient may go home on hospice today. He did not wish for his thoracentesis today. He wanted to get his thoracentesis this coming September 11 with a Pleurx/asept catheter placed at
that time. Oncology was consulted. Dr. Otero came to see the patient (she is his outpatient oncologist). Thoracentesis and Pleurx catheter placement are still agreed upon for September 11. But he has now agreed to pursue chemotherapy
and treatment options. He will not be discharged to hospice.
Original Note:
Discharge Summary
Discharge Data
Date of Admission: 09/09/23
Date of Discharge: 09/10/23
-
Pending Results: No
Hospital Course
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 He presented to the ED with worsening of shortness of breath from morning of admission. He did not report any fevers/chills, cough,
hemoptysis, nausea or vomiting but had right-sided chest pain which got worse with breathing and was alleviated when lying on his left side. Patient had underwent thoracentesis x 2 (first time: 08/22, repeat: 09/03), each time yielding 2000 cc of
serosanguineous pleural fluid (4000cc total). Patient was under supervision of Dr. Otero and had his first chemotherapy session scheduled for (09/12). His chemotherapy port was placed on 09/05 at . Patient had a PMH of CAD, HTN,
Hypercholesterolemia, MARY BETH and NIDDM. He had been using CPAP at home from many years ago due to MARY BETH. Evaluation in the ED showed mild leukocytosis. CXR showed moderate to large partially loculated right pleural effusion with associated atelectasis
and/or pneumonia, which had progressed compared to prior study. Patient was admitted for thoracentesis.
Problem #1: Worsening of shortness of breath: Most probably due to malignant right-sided pleural effusion although cannot rule out pneumonia-IR was consulted but thoracentesis was not done- patient and family opted to wait until Sunday (09/11) to
have Asept/Pleurx done. IR service is aware of plans.
Problem #2: Mild leukocytosis: Patient received empiric Zosyn. He did not develop fevers at any time during hospitalization. Leukocytosis was resolved at the time of discharge.
Problem #3: Recently diagnosed small cell lung cancer: Oncology 7 was consulted. Patient would like to consider first session of chemo on . Dr. Otero (patient's primary oncologist) is aware of plans.
Problem #4: Essential hypertension: No changes as prior to admission. Patient can continue his previous medications.
Problem #5: diabetes mellitus type 2 (NIDDM): No changes as prior to admission. Patient can continue metformin as before.
Spoke with patient's at bedside and she is aware of treatment plans. Patient is stable for discharge to home with hospice.
Discharge Plan
-
Patient Disposition: Home with Home Care
Discharge Diagnosis/Procedures: Metastatic small-cell lung cancer, malignant right-sided pleural effusion
Condition: Fair
Diet: As tolerated
Activity: As tolerated
Driving Restrictions: No driving
Bathing Restrictions: None
Other Services: VN
Referrals:
Beatrice Saenz MD [Active] - (As directed)
Star Silva MD [Family Provider] - in less than 1 week
Prescriptions:
New
morphine 10 mg/5 mL solution
5 mg PO Q4H PRN (Reason: shortness of breath, pain) Qty: 100 0RF
Continued
losartan 50 MG tablet
50 mg PO QPM
Stool Softener 50 MG capsule
100 mg PO HS
omeprazole 40 MG capsule,delayed release(DR/EC)
40 mg PO DAILY
naproxen [EC-Naproxen] 500 MG tablet,delayed release (DR/EC)
500 mg PO DAILYPRN PRN (Reason: mild pain)
aspirin 81 MG tablet,chewable
81 mg PO QPM
finasteride 5 MG tablet
5 mg PO HS
atorvastatin 40 mg Tablet
40 mg PO HS
amlodipine 5 mg Tablet
5 mg PO HS
multivitamin Tablet
1 tab PO DAILY
famotidine 40 mg Tablet
40 mg PO HS
albuterol sulfate 90 mcg/actuation Hfa Aerosol Inhaler
1 inh INHALATION R QIDPRN PRN (Reason: sob/wheezing)
diazepam 5 mg Tablet
5 mg PO HSPRN PRN (Reason: restless leg)
guaifenesin [Mucinex] 1,200 mg Tablet Extended Release 12hr
1,200 mg PO DAILY
metformin 500 mg Tablet Extended Release 24 Hr
1,000 mg PO QPM
ondansetron 8 mg Tablet,Disintegrating
8 mg PO [id number] PRN (Reason: nausea )
lidocaine-prilocaine 2.5-2.5 % Cream
1 applic TOPICAL DAILYPRN PRN (Reason: port)
etoposide phosphate 100 mg Recon Soln
0 mg IV UD
carboplatin 150 mg Recon Soln
0 mg IV UD
loratadine [Claritin] 10 mg Tablet
10 mg PO UD
Rx Instructions:
take 2 days before chemo and 3 days after
atezolizumab 840 mg/14 mL (60 mg/mL) Solution
0 mg IV UD
Rx Instructions:
starting 09/11/23 infusion for 3 days then21 days off for total of 4 treatments
Discharge Orders:
Discharge Patient (As Directed); Ordered 09/10/23
Ordered By: Aysha Andre
Discharge Date and Time
Discharge Date/Time: 09/10/23 15:55
Print Language: EGYPTIAN
== END 2023-09-10 15:55 | disposition home health service (06) | DRG 181 ==
LOC: 3 WEST ACU 17:48
PROVIDERS: Physician Assistant; ADMITTING PHYSICIAN Internal Medicine; ATTENDING PHYSICIAN Internal Medicine; CONSULT PHYSICIAN Internal Medicine Hematology & Oncology; EMERGENCY PHYSICIAN Emergency Medicine; FAMILY PHYSICIAN Internal Medicine
DX: C34.91 Malignant neoplasm of unspecified part of right bronchus or lung (principal); J91.0 Malignant pleural effusion; F17.200 Nicotine dependence, unspecified, uncomplicated
CPT/HCPCS: 36561; 71046; 76937; 77001; 80048; 82962; 83036; 84145; 85025; 85027; 93005; 94640; 96372; 99152; 99153; 99285; C1788

== ENCOUNTER → 2023-09-11 12:13 | Outpatient (REF) | payer MEDICARE, BC, SELFPAY ==
[2023-09-11 12:36] VITALS: BP 156/82; BP_SYST 90
[2023-09-11 14:45] VITALS: BP 134/82
[2023-09-11 14:59] LABS: % Basophils 0.6 % (0-2); % Eosinophils 2.8 % (0-6); % Immature Granulocytes 0.4 % (0-0.5); % Monocytes 10.8 % (1.7-9.3); % Neutrophils 55.4 % (42.2-75.2); Absolute Basophils 0.1 10^3/uL (0-0.2); Absolute Eosinophils 0.4 10^3/uL (0-0.7); Absolute Immature Granulocytes 0.1 10^3/uL (0-0.05); Absolute Lymphocytes 4.2 10^3/uL (1.2-3.4); Absolute Monocytes 1.5 10^3/uL (0.1-0.6); Absolute Neutrophils 7.8 10^3/uL (1.4-6.5); Hematocrit 39.8 % (39.0-52.0); Hemoglobin 13.9 g/dL (13.0-18.0); Mean Corp Hgb Conc. 34.9 g/dL (33.0-37.0); Mean Corpuscular Hgb 30.1 pg (27.0-31.0); Mean Corpuscular Volume 86.1 fL (80.0-94.0); Mean Platelet Volume 11.4 fL (7.4-10.4); Nucleated Red Blood Cells % 0 % (-); Platelet Count 222 10^3/uL (130-400); Red Blood Cell Count 4.62 10^6/uL (4.70-6.10); Red Cell Dist. Width 13.5 % (11.5-14.5); White Blood Cell Count 14.1 10^3/uL (4.8-10.8)
[2023-09-11 15:06] LABS: ALT (SGPT) 31 U/L (0-50); AST (SGOT) 60 U/L (17-59); Albumin 3.3 g/dl (3.5-5.0); Alkaline Phosphatase 97 U/L (38-126); Blood Urea Nitrogen 20 mg/dl (9-20); Calcium 8.6 mg/dl (8.4-10.2); Carbon Dioxide 23 mmol/L (22-30); Chloride 106 mmol/L (98-107); Glucose 127 mg/dl (70-99); Potassium 4.3 mmol/L (3.5-5.1); Sodium 138 mmol/L (135-145); Total Bilirubin 0.8 mg/dl (0.2-1.3); Total Protein 5.6 g/dl (6.3-8.2); eGFR > 60.00
== END ==
LOC: RADI 12:13
PROVIDERS: ATTENDING PHYSICIAN Internal Medicine Hematology & Oncology; FAMILY PHYSICIAN Internal Medicine
DX: C34.11 Malignant neoplasm of upper lobe, right bronchus or lung (principal); J91.0 Malignant pleural effusion
CPT/HCPCS: 32550; 36415; 75989; 80053; 85025; 99152; 99153; C1729; C1769

== ENCOUNTER → 2023-09-12 10:03 | Outpatient (REF) | payer MEDICARE, BC, SELFPAY ==
[2023-09-12 11:37] LABS: TSH Reflex To Free T4 3.58 uIU/ml (0.47-4.68)
== END ==
LOC: OIDL 10:03
PROVIDERS: ATTENDING PHYSICIAN Internal Medicine Hematology & Oncology
DX: C34.11 Malignant neoplasm of upper lobe, right bronchus or lung (principal); R53.82 Chronic fatigue, unspecified
CPT/HCPCS: 84443

== ENCOUNTER → 2023-09-12 14:33 | Outpatient (REF) | payer MEDICARE, BC, SELFPAY ==
--- NOTE | 2023-09-12 15:10 | PN.IRAD.UPD ---
Update Note - IRAD
- -
's office called, patient was at [facility] having his chemo treatment and was feeling SOB. VN had not been fully set up yet so they were unsure when he could be drained again. We agreed to have him come over to drain him post treatment,
700ml bloody fluid was removed. The patient's was given the VN order to drain 3x a week from Branden's office. According to the office VN should be coming out on Sunday, the patient's seemed unaware of that schedule. Suggested she
call the oncology office if unsure. was fully trained on how to drain and care for the Asept after placement on 09/10. She was given a folder, video and instruction sheet on how to order supplies. Patient was sent home with 4 bottles to get
them started with draining.
== END ==
LOC: RADI 14:33
PROVIDERS: ATTENDING PHYSICIAN Internal Medicine Hematology & Oncology; FAMILY PHYSICIAN Internal Medicine
DX: J90 Pleural effusion, not elsewhere classified (principal)

== ENCOUNTER → 2023-09-17 14:54 | Outpatient (REF) | payer MEDICARE, BC, SELFPAY | LOC: RAD 14:54 | PROVIDERS: ATTENDING PHYSICIAN Internal Medicine Hematology & Oncology; FAMILY PHYSICIAN Internal Medicine | DX: C34.11 Malignant neoplasm of upper lobe, right bronchus or lung (principal); J91.0 Malignant pleural effusion; G89.3 Neoplasm related pain (acute) (chronic) | CPT/HCPCS: 76770 ==

== ENCOUNTER → 2023-09-19 08:47 | Outpatient (REF) | payer MEDICARE, BC, SELFPAY ==
[2023-09-19 10:41] LABS: ALT (SGPT) 47 U/L (0-50); AST (SGOT) 60 U/L (17-59); Albumin 3.1 g/dl (3.5-5.0); Alkaline Phosphatase 107 U/L (38-126); Blood Urea Nitrogen 14 mg/dl (9-20); Calcium 8.4 mg/dl (8.4-10.2); Carbon Dioxide 24 mmol/L (22-30); Chloride 99 mmol/L (98-107); Glucose 123 mg/dl (70-99); Sodium 132 mmol/L (135-145); Total Bilirubin 0.8 mg/dl (0.2-1.3); Total Protein 5.5 g/dl (6.3-8.2); eGFR > 60.00
[2023-09-19 11:33] LABS: Hematocrit 31.4 % (39.0-52.0); Hemoglobin 10.9 g/dL (13.0-18.0); Mean Corp Hgb Conc. 34.7 g/dL (33.0-37.0); Mean Corpuscular Hgb 29.9 pg (27.0-31.0); Mean Corpuscular Volume 86.3 fL (80.0-94.0); Mean Platelet Volume 11.4 fL (7.4-10.4); Platelet Count 147 10^3/uL (130-400); Red Blood Cell Count 3.64 10^6/uL (4.70-6.10); Red Cell Dist. Width 12.7 % (11.5-14.5); White Blood Cell Count 9.6 10^3/uL (4.8-10.8)
[2023-09-19 13:38] LABS: % Basophils 0.8 % (0-2); % Eosinophils 2.2 % (0-6); % Immature Granulocytes 14.1 % (0-0.5); % Lymphocytes 18.1 % (20.5-51.1); % Neutrophils 63.8 % (42.2-75.2); Absolute Basophils 0.1 10^3/uL (0-0.2); Absolute Eosinophils 0.2 10^3/uL (0-0.7); Absolute Immature Granulocytes 1.4 10^3/uL (0-0.05); Absolute Lymphocytes 1.7 10^3/uL (1.2-3.4); Absolute Monocytes 0.1 10^3/uL (0.1-0.6); Absolute Neutrophils 6.1 10^3/uL (1.4-6.5); Nucleated Red Blood Cells % 0 % (-)
== END ==
LOC: REG 08:47
PROVIDERS: ATTENDING PHYSICIAN Nurse Practitioner Adult Health; FAMILY PHYSICIAN Internal Medicine; REFERRING PHYSICIAN Internal Medicine Hematology & Oncology
DX: C34.11 Malignant neoplasm of upper lobe, right bronchus or lung (principal); J91.0 Malignant pleural effusion; G89.3 Neoplasm related pain (acute) (chronic)
CPT/HCPCS: 36415; 80053; 85025

== ENCOUNTER → 2023-09-27 11:18 | Outpatient (REF) | payer MEDICARE, BC, SELFPAY | LOC: MRI 3T 11:18 | PROVIDERS: ATTENDING PHYSICIAN Internal Medicine Hematology & Oncology; FAMILY PHYSICIAN Internal Medicine | DX: C34.11 Malignant neoplasm of upper lobe, right bronchus or lung (principal); J91.0 Malignant pleural effusion; G89.3 Neoplasm related pain (acute) (chronic) | CPT/HCPCS: 70553; A9575 ==

== ENCOUNTER → 2023-10-01 09:15 | Outpatient (REF) | payer MEDICARE, BC, SELFPAY ==
[2023-10-01 11:18] LABS: Hematocrit 30.2 % (39.0-52.0); Hemoglobin 10.1 g/dL (13.0-18.0); Mean Corp Hgb Conc. 33.4 g/dL (33.0-37.0); Mean Corpuscular Hgb 29.7 pg (27.0-31.0); Mean Corpuscular Volume 88.8 fL (80.0-94.0); Mean Platelet Volume 10.4 fL (7.4-10.4); Platelet Count 271 10^3/uL (130-400); Red Cell Dist. Width 14.5 % (11.5-14.5)
[2023-10-01 11:55] LABS: ALT (SGPT) 39 U/L (0-50); AST (SGOT) 52 U/L (17-59); Albumin 3.3 g/dl (3.5-5.0); Alkaline Phosphatase 234 U/L (38-126); Blood Urea Nitrogen 16 mg/dl (9-20); Calcium 8.5 mg/dl (8.4-10.2); Carbon Dioxide 27 mmol/L (22-30); Chloride 100 mmol/L (98-107); Glucose 82 mg/dl (70-99); Potassium 3.1 mmol/L (3.5-5.1); Sodium 139 mmol/L (135-145); Total Bilirubin 0.3 mg/dl (0.2-1.3); Total Protein 5.8 g/dl (6.3-8.2); eGFR > 60.00
[2023-10-01 12:54] LABS: Absolute Neutrophils -Man Diff 48.6 10^3/uL (1.4-6.5); Band Neutrophils 5 % (0-3); Blasts 1 % (-); Lymphocytes 10 % (20-51); Monocytes 5 % (2-9); Segmented Neutrophils 79 % (42-75); Total Cells Counted 100
[2023-10-01 12:55] LABS: Normal RBC Morphology Yes; Platelets Checked Yes
[2023-10-01 13:21] LABS: White Blood Cell Count 57.9 10^3/uL (4.8-10.8)
== END ==
LOC: REG 09:15
PROVIDERS: ATTENDING PHYSICIAN Internal Medicine Hematology & Oncology; FAMILY PHYSICIAN Internal Medicine
DX: C34.11 Malignant neoplasm of upper lobe, right bronchus or lung (principal); J91.0 Malignant pleural effusion; G89.3 Neoplasm related pain (acute) (chronic)
CPT/HCPCS: 36415; 80053; 85025

== ENCOUNTER → 2023-10-03 13:09 | Outpatient (REF) | payer MEDICARE, BC, SELFPAY ==
[2023-10-03 09:32] LABS: % Basophils 0.7 % (0-2); % Immature Granulocytes 5.1 % (0-0.5); % Lymphocytes 9.1 % (20.5-51.1); % Monocytes 6.2 % (1.7-9.3); % Neutrophils 78.9 % (42.2-75.2); Absolute Basophils 0.4 10^3/uL (0-0.2); Absolute Immature Granulocytes 2.7 10^3/uL (0-0.05); Absolute Lymphocytes 4.8 10^3/uL (1.2-3.4); Absolute Monocytes 3.3 10^3/uL (0.1-0.6); Absolute Neutrophils 41.7 10^3/uL (1.4-6.5); Hematocrit 30.2 % (39.0-52.0); Hemoglobin 10.1 g/dL (13.0-18.0); Mean Corp Hgb Conc. 33.4 g/dL (33.0-37.0); Mean Corpuscular Hgb 30.3 pg (27.0-31.0); Mean Corpuscular Volume 90.7 fL (80.0-94.0); Mean Platelet Volume 9.8 fL (7.4-10.4); Platelet Count 377 10^3/uL (130-400); Red Blood Cell Count 3.33 10^6/uL (4.70-6.10); Red Cell Dist. Width 14.5 % (11.5-14.5)
[2023-10-03 09:34] LABS: White Blood Cell Count 52.9 10^3/uL (4.8-10.8)
[2023-10-03 11:30] LABS: ALT (SGPT) 44 U/L (0-50); AST (SGOT) 46 U/L (17-59); Albumin 3.3 g/dl (3.5-5.0); Alkaline Phosphatase 186 U/L (38-126); Blood Urea Nitrogen 18 mg/dl (9-20); Carbon Dioxide 30 mmol/L (22-30); Chloride 104 mmol/L (98-107); Glucose 117 mg/dl (70-99); Potassium 3.7 mmol/L (3.5-5.1); Sodium 139 mmol/L (135-145); Total Bilirubin 0.4 mg/dl (0.2-1.3); Total Protein 5.7 g/dl (6.3-8.2); eGFR > 60.00
== END ==
LOC: OIDL 13:09
PROVIDERS: ATTENDING PHYSICIAN Internal Medicine Hematology & Oncology
DX: C34.11 Malignant neoplasm of upper lobe, right bronchus or lung (principal)
CPT/HCPCS: 80053; 85025

== ENCOUNTER → 2023-10-08 10:15 | Outpatient (REF) | payer MEDICARE, BC, SELFPAY ==
[2023-10-08 09:38] LABS: % Basophils 0.2 % (0-2); % Eosinophils 0.1 % (0-6); % Immature Granulocytes 0.7 % (0-0.5); % Lymphocytes 21.4 % (20.5-51.1); % Monocytes 1.1 % (1.7-9.3); % Neutrophils 76.5 % (42.2-75.2); Absolute Immature Granulocytes 0.1 10^3/uL (0-0.05); Absolute Lymphocytes 2.6 10^3/uL (1.2-3.4); Absolute Monocytes 0.1 10^3/uL (0.1-0.6); Absolute Neutrophils 9.2 10^3/uL (1.4-6.5); Hematocrit 29.3 % (39.0-52.0); Hemoglobin 10.1 g/dL (13.0-18.0); Mean Corp Hgb Conc. 34.5 g/dL (33.0-37.0); Mean Corpuscular Hgb 30.8 pg (27.0-31.0); Mean Corpuscular Volume 89.3 fL (80.0-94.0); Mean Platelet Volume 10.4 fL (7.4-10.4); Nucleated Red Blood Cells % 0 % (-); Platelet Count 419 10^3/uL (130-400); Red Blood Cell Count 3.28 10^6/uL (4.70-6.10); Red Cell Dist. Width 14.8 % (11.5-14.5); White Blood Cell Count 12.1 10^3/uL (4.8-10.8)
== END ==
LOC: OIDL 10:15
PROVIDERS: ATTENDING PHYSICIAN Internal Medicine Hematology & Oncology
DX: C34.11 Malignant neoplasm of upper lobe, right bronchus or lung (principal)
CPT/HCPCS: 85025

== ENCOUNTER → 2023-10-16 08:41 | Outpatient (REF) | payer MEDICARE, BC, SELFPAY | LOC: RAD 08:41 | PROVIDERS: ATTENDING PHYSICIAN Internal Medicine Critical Care Medicine; FAMILY PHYSICIAN Internal Medicine | DX: J91.0 Malignant pleural effusion (principal); C34.01 Malignant neoplasm of right main bronchus; R05.1 Acute cough | CPT/HCPCS: 71046 ==

== ENCOUNTER → 2023-10-22 08:45 | Outpatient (REF) | payer MEDICARE, BC, SELFPAY ==
[2023-10-22 10:32] LABS: ALT (SGPT) 44 U/L (0-50); AST (SGOT) 41 U/L (17-59); Albumin 3.6 g/dl (3.5-5.0); Alkaline Phosphatase 195 U/L (38-126); Blood Urea Nitrogen 11 mg/dl (9-20); Calcium 9.1 mg/dl (8.4-10.2); Carbon Dioxide 28 mmol/L (22-30); Chloride 102 mmol/L (98-107); Glucose 99 mg/dl (70-99); Potassium 3.4 mmol/L (3.5-5.1); Sodium 142 mmol/L (135-145); Total Bilirubin 0.5 mg/dl (0.2-1.3); Total Protein 5.9 g/dl (6.3-8.2); eGFR > 60.00
[2023-10-22 13:19] LABS: % Basophils 0.5 % (0-2); % Eosinophils 0.2 % (0-6); % Immature Granulocytes 6.8 % (0-0.5); % Lymphocytes 10.4 % (20.5-51.1); % Monocytes 4.3 % (1.7-9.3); % Neutrophils 77.8 % (42.2-75.2); Absolute Basophils 0.3 10^3/uL (0-0.2); Absolute Eosinophils 0.1 10^3/uL (0-0.7); Absolute Immature Granulocytes 3.7 10^3/uL (0-0.05); Absolute Lymphocytes 5.6 10^3/uL (1.2-3.4); Absolute Monocytes 2.3 10^3/uL (0.1-0.6); Hematocrit 30.8 % (39.0-52.0); Hemoglobin 10.1 g/dL (13.0-18.0); Mean Corp Hgb Conc. 32.8 g/dL (33.0-37.0); Mean Corpuscular Hgb 29.9 pg (27.0-31.0); Mean Corpuscular Volume 91.1 fL (80.0-94.0); Mean Platelet Volume 10.6 fL (7.4-10.4); Nucleated Red Blood Cells % 0.1 % (-); Platelet Count 149 10^3/uL (130-400); Red Blood Cell Count 3.38 10^6/uL (4.70-6.10); Red Cell Dist. Width 17.7 % (11.5-14.5)
== END ==
LOC: REG 08:45
PROVIDERS: ATTENDING PHYSICIAN Internal Medicine Hematology & Oncology; FAMILY PHYSICIAN Internal Medicine
DX: C34.11 Malignant neoplasm of upper lobe, right bronchus or lung (principal); J91.0 Malignant pleural effusion; G89.3 Neoplasm related pain (acute) (chronic)
CPT/HCPCS: 36415; 71250; 80053; 85025

== ENCOUNTER → 2023-10-26 06:53 | Outpatient (REF) | payer MEDICARE, BC, SELFPAY ==
[2023-10-26 07:15] VITALS: BP 128/69; BP_SYST 69
[2023-10-26 08:20] VITALS: BP 128/69
== END ==
LOC: RADI 06:53
PROVIDERS: ATTENDING PHYSICIAN Internal Medicine Critical Care Medicine; FAMILY PHYSICIAN Internal Medicine
DX: Z46.82 Encounter for fitting and adjustment of non-vascular catheter (principal); C34.11 Malignant neoplasm of upper lobe, right bronchus or lung; J91.0 Malignant pleural effusion
CPT/HCPCS: 32552

== ENCOUNTER → 2023-10-30 07:41 | Outpatient (REF) | payer MEDICARE, BC, SELFPAY ==
[2023-10-30 09:08] LABS: Hematocrit 29.7 % (39.0-52.0); Hemoglobin 10.2 g/dL (13.0-18.0); Mean Corp Hgb Conc. 34.3 g/dL (33.0-37.0); Mean Corpuscular Hgb 30.5 pg (27.0-31.0); Mean Corpuscular Volume 88.9 fL (80.0-94.0); Mean Platelet Volume 10.5 fL (7.4-10.4); Platelet Count 260 10^3/uL (130-400); Red Blood Cell Count 3.34 10^6/uL (4.70-6.10); Red Cell Dist. Width 17.2 % (11.5-14.5); White Blood Cell Count 11.5 10^3/uL (4.8-10.8)
[2023-10-30 10:06] LABS: % Basophils 0.7 % (0-2); % Eosinophils 0.3 % (0-6); % Immature Granulocytes 1.6 % (0-0.5); % Lymphocytes 24.6 % (20.5-51.1); % Monocytes 1.1 % (1.7-9.3); % Neutrophils 71.7 % (42.2-75.2); Absolute Basophils 0.1 10^3/uL (0-0.2); Absolute Immature Granulocytes 0.2 10^3/uL (0-0.05); Absolute Lymphocytes 2.8 10^3/uL (1.2-3.4); Absolute Monocytes 0.1 10^3/uL (0.1-0.6); Absolute Neutrophils 8.3 10^3/uL (1.4-6.5); Nucleated Red Blood Cells % 0 % (-)
== END ==
LOC: REG 07:41
PROVIDERS: ATTENDING PHYSICIAN Internal Medicine
DX: C34.11 Malignant neoplasm of upper lobe, right bronchus or lung (principal); J91.0 Malignant pleural effusion; G89.3 Neoplasm related pain (acute) (chronic); L29.9 Pruritus, unspecified
CPT/HCPCS: 36415; 85025

== ENCOUNTER → 2023-11-13 12:08 | Outpatient (REF) | payer MEDICARE, BC, SELFPAY ==
[2023-11-13 13:34] LABS: Hematocrit 33.6 % (39.0-52.0); Hemoglobin 11.2 g/dL (13.0-18.0); Mean Corp Hgb Conc. 33.3 g/dL (33.0-37.0); Mean Corpuscular Hgb 30.8 pg (27.0-31.0); Mean Corpuscular Volume 92.3 fL (80.0-94.0); Mean Platelet Volume 9.9 fL (7.4-10.4); Platelet Count 204 10^3/uL (130-400); Red Blood Cell Count 3.64 10^6/uL (4.70-6.10); Red Cell Dist. Width 19.1 % (11.5-14.5); White Blood Cell Count 36.2 10^3/uL (4.8-10.8)
[2023-11-13 13:51] LABS: ALT (SGPT) 38 U/L (0-50); AST (SGOT) 38 U/L (17-59); Albumin 4.1 g/dl (3.5-5.0); Alkaline Phosphatase 149 U/L (38-126); Blood Urea Nitrogen 18 mg/dl (9-20); Calcium 9.2 mg/dl (8.4-10.2); Carbon Dioxide 23 mmol/L (22-30); Chloride 104 mmol/L (98-107); Glucose 151 mg/dl (70-99); Potassium 3.9 mmol/L (3.5-5.1); Sodium 141 mmol/L (135-145); Total Bilirubin 0.4 mg/dl (0.2-1.3); Total Protein 6.5 g/dl (6.3-8.2); eGFR > 60.00
[2023-11-13 14:06] LABS: % Basophils 0.5 % (0-2); % Eosinophils 0.1 % (0-6); % Lymphocytes 12.8 % (20.5-51.1); % Monocytes 6.1 % (1.7-9.3); % Neutrophils 77.5 % (42.2-75.2); Absolute Basophils 0.2 10^3/uL (0-0.2); Absolute Immature Granulocytes 1.1 10^3/uL (0-0.05); Absolute Lymphocytes 4.6 10^3/uL (1.2-3.4); Absolute Monocytes 2.2 10^3/uL (0.1-0.6); Absolute Neutrophils 28.1 10^3/uL (1.4-6.5); Nucleated Red Blood Cells % 0 % (-)
== END ==
LOC: REG 12:08
PROVIDERS: ATTENDING PHYSICIAN Internal Medicine Hematology & Oncology; FAMILY PHYSICIAN Internal Medicine
DX: C34.11 Malignant neoplasm of upper lobe, right bronchus or lung (principal); J91.0 Malignant pleural effusion; G89.3 Neoplasm related pain (acute) (chronic); L29.9 Pruritus, unspecified
CPT/HCPCS: 36415; 80053; 85025

== ENCOUNTER → 2023-12-04 08:38 | Outpatient (REF) | payer MEDICARE, BC, SELFPAY ==
[2023-12-04 10:28] LABS: % Basophils 0.4 % (0-2); % Eosinophils 0.4 % (0-6); % Immature Granulocytes 4.7 % (0-0.5); % Lymphocytes 14.2 % (20.5-51.1); % Monocytes 6.3 % (1.7-9.3); Absolute Basophils 0.1 10^3/uL (0-0.2); Absolute Eosinophils 0.1 10^3/uL (0-0.7); Absolute Immature Granulocytes 1.2 10^3/uL (0-0.05); Absolute Lymphocytes 3.5 10^3/uL (1.2-3.4); Absolute Monocytes 1.6 10^3/uL (0.1-0.6); Absolute Neutrophils 18.2 10^3/uL (1.4-6.5); Hematocrit 29.6 % (39.0-52.0); Hemoglobin 9.7 g/dL (13.0-18.0); Mean Corp Hgb Conc. 32.8 g/dL (33.0-37.0); Mean Corpuscular Hgb 31.4 pg (27.0-31.0); Mean Corpuscular Volume 95.8 fL (80.0-94.0); Mean Platelet Volume 10.6 fL (7.4-10.4); Nucleated Red Blood Cells % 0.1 % (-); Platelet Count 226 10^3/uL (130-400); Red Blood Cell Count 3.09 10^6/uL (4.70-6.10); Red Cell Dist. Width 19.3 % (11.5-14.5); White Blood Cell Count 24.6 10^3/uL (4.8-10.8)
[2023-12-04 11:18] LABS: ALT (SGPT) 28 U/L (0-50); AST (SGOT) 34 U/L (17-59); Albumin 3.6 g/dl (3.5-5.0); Alkaline Phosphatase 146 U/L (38-126); Blood Urea Nitrogen 11 mg/dl (9-20); Calcium 8.3 mg/dl (8.4-10.2); Carbon Dioxide 25 mmol/L (22-30); Chloride 104 mmol/L (98-107); Glucose 145 mg/dl (70-99); Potassium 3.7 mmol/L (3.5-5.1); Sodium 143 mmol/L (135-145); Total Bilirubin 0.1 mg/dl (0.2-1.3); Total Protein 6.1 g/dl (6.3-8.2); eGFR > 60.00
== END ==
LOC: REG 08:38
PROVIDERS: ATTENDING PHYSICIAN Internal Medicine Hematology & Oncology; FAMILY PHYSICIAN Internal Medicine
DX: C34.11 Malignant neoplasm of upper lobe, right bronchus or lung (principal); J91.0 Malignant pleural effusion; G89.3 Neoplasm related pain (acute) (chronic)
CPT/HCPCS: 36415; 80053; 85025

== ENCOUNTER → 2023-12-07 09:44 | Outpatient (REF) | payer MEDICARE, BC, SELFPAY | LOC: MRI 3T 09:44 | PROVIDERS: ATTENDING PHYSICIAN Nurse Practitioner; FAMILY PHYSICIAN Internal Medicine | DX: C79.49 Secondary malignant neoplasm of other parts of nervous system (principal); C79.31 Secondary malignant neoplasm of brain | CPT/HCPCS: 70553; A9575 ==

== ENCOUNTER → 2023-12-17 10:23 | Outpatient (REF) | payer MEDICARE, BC, SELFPAY ==
[2023-12-19 09:38] LABS: IgE 103 kU/L (<=214)
== END ==
LOC: REG 10:23
PROVIDERS: ATTENDING PHYSICIAN Internal Medicine Hematology & Oncology; FAMILY PHYSICIAN Internal Medicine
DX: C34.11 Malignant neoplasm of upper lobe, right bronchus or lung (principal); J91.0 Malignant pleural effusion; G89.3 Neoplasm related pain (acute) (chronic); L29.9 Pruritus, unspecified; R53.83 Other fatigue
CPT/HCPCS: 36415; 82785

== ENCOUNTER → 2023-12-20 14:40 | Outpatient (REF) | payer MEDICARE, BC, SELFPAY | LOC: RAD 14:40 | PROVIDERS: ATTENDING PHYSICIAN Nurse Practitioner Adult Health; FAMILY PHYSICIAN Internal Medicine | DX: C34.11 Malignant neoplasm of upper lobe, right bronchus or lung (principal); J91.0 Malignant pleural effusion; G89.3 Neoplasm related pain (acute) (chronic); L29.9 Pruritus, unspecified; L50.9 Urticaria, unspecified | CPT/HCPCS: 71046 ==

== ENCOUNTER → 2024-01-02 16:04 | Outpatient (REF) | payer MEDICARE, BC, SELFPAY ==
[2024-01-02 18:24] LABS: Iron 126 ug/dl (49-181)
[2024-01-02 18:33] LABS: Percent Saturation 39 % (20-50); Total Iron Binding Capacity 319 ug/dl (261-462)
== END ==
LOC: RAD 16:04
PROVIDERS: ATTENDING PHYSICIAN Internal Medicine; REFERRING PHYSICIAN Nurse Practitioner Primary Care
DX: R10.11 Right upper quadrant pain (principal); E11.59 Type 2 diabetes mellitus with other circulatory complications; C34.11 Malignant neoplasm of upper lobe, right bronchus or lung; J91.0 Malignant pleural effusion; G89.3 Neoplasm related pain (acute) (chronic); L29.9 Pruritus, unspecified; L50.9 Urticaria, unspecified
CPT/HCPCS: 36415; 76700; 82728; 83036; 83540; 83550

== ENCOUNTER → 2024-01-14 11:55 | Outpatient (REF) | payer MEDICARE, BC, SELFPAY | LOC: HWRAD 11:55 | PROVIDERS: ATTENDING PHYSICIAN Nurse Practitioner Adult Health; FAMILY PHYSICIAN Internal Medicine; REFERRING PHYSICIAN Internal Medicine Critical Care Medicine | DX: C34.11 Malignant neoplasm of upper lobe, right bronchus or lung (principal); J91.0 Malignant pleural effusion; G89.3 Neoplasm related pain (acute) (chronic); L29.9 Pruritus, unspecified; L50.9 Urticaria, unspecified | CPT/HCPCS: 71260; 74177; Q9967 ==

== ENCOUNTER 2024-01-16 08:03 | Emergency (ER) | payer MEDICARE, BC, SELFPAY ==
[2024-01-16 08:12] VITALS: BP 136/61
--- NOTE | 2024-01-16 08:20 | ED.GENMED ---
History of Present Illness
<Rahul Walter PA-C - Last Filed: 01/16/24 12:39>
General
Chief Complaint: Swallowing Problem
Source: patient
Time Seen by Provider: 01/16/24 08:04
History of Present Illness
History of Present Illness:
78-year-old male with past medical history of small cell lung cancer, hypertension, GERD, dks-uzfjhea-lyignehbj diabetes currently completed 4 courses of chemo but has not had any recent chemotherapy due to some side effects presenting to the ER via
EMS after awakening around 3 AM with a sensation of being unable to swallow. Patient states this is very different than a typical sore throat and he states that while he has been tolerating his secretions feels as if is unable to swallow his own
saliva. does note that over the last few days he has not been eating or drinking as much. Recently completed in approximately 1 month course of steroids for a rash that developed as part of his treatment for his small cell lung cancer.
Patient denies any chest pain, shortness of breath, palpitations, diaphoresis, nausea, vomiting, bowel changes. Patient does note some chronic right-sided abdomen/chest discomfort which is not any different today, reporting patient had a CT
scan of the abdomen and pelvis done 2 days ago but is unsure of these results.
Past History
<Rahul Walter PA-C - Last Filed: 01/16/24 12:39>
Past History
ED Past Medical History: CAD, Cancer, HTN, NIDDM and Psychiatric
ED Past Surgical History: Cardiac, Orthopedic and Other
Social History
Tobacco: Former smoker
Alcohol: None
Drug: None
Personal:
Living: with family
Review of Systems
<Rahul Walter PA-C - Last Filed: 01/16/24 12:39>
Review of Systems
All Other Systems: ROS reviewed and negative except as documented in HPI and ROS
Phy Exam
<Rahul Walter PA-C - Last Filed: 01/16/24 12:39>
Physical Exam
Physical Exam:
GENERAL: Alert , in no apparent distress
EYE: clear conjunctiva b/l
HEAD: NCAT
ENT: o/p clr, mmm. No tonsillar edema or exudate, no oral thrush
CARDIAC: Tachycardic rate and rhythm between 103 and 109 bpm
LUNGS: Clear breath sounds bilaterally, no acute respiratory distress, no wheezes/rales/rhonchi
ABDOMEN: Soft, without focal tenderness, no r/g, no cvat
NEUROLOGICAL: Alert and oriented
SKIN: Warm and dry, skin intact. Scattered older appearing bruises to bilateral upper extremities
MUSCULOSKELETAL: No edema, well perfused.
PSYCH: Normal and appropriate interaction.
Scores
<SOURAV Mcgraw Last Filed: 01/16/24 12:39>
Heart Failure Risk
Heart Failure Risk Score: Not Applicable
Heart Score for Chest Pain Patients
STEMI patient?: Not applicable
Withdrawal Assessment of Alcohol
Withdrawal Assessment Completed?: Not applicable
Course
<Rahul Walter PA-C - Last Filed: 01/16/24 12:39>
Orders/Labs/Results
Orders:
Orders
01/16/24 08:16
Electrocardiogram (*1) Urgent
Reason for Study: Other
Other Reason for Exam: throat pain
EKG- Treatment ONCE
01/16/24 08:24
CT Neck With Iv Contrast Urgent
Comment:
Reason For Exam: difficulty swallowing sensation
01/16/24 08:33
Complete Blood Count/With Diff Urgent
Comprehensive Metabolic Panel Urgent
Troponin I Urgent
01/16/24 08:36
Dexamethasone Sod Phosphate [Decadron] 10 mg IV NOW STA
Abnormal Lab Results
01/16/24
08:33
RBC 4.38 L 10^6/uL
(4.70-6.10)
Hgb 12.9 L g/dL
(13.0-18.0)
MCHC 32.5 L g/dL
(33.0-37.0)
RDW 14.6 H %
(11.5-14.5)
Absolute Monos (auto) 0.8 H 10^3/uL
(0.1-0.6)
Glucose 166 H mg/dl
(70-99)
Total Protein 6.0 L g/dl
(6.3-8.2)
01/16/24 08:33
01/16/24 08:33
Vital Signs
Initial and Last Documented VS:
Initial Vital Signs
Pulse Resp BP Pulse Ox
106 20 136/61 94
01/16/24 08:12 01/16/24 08:12 01/16/24 08:12 01/16/24 08:12
Last Documented Vital Signs
Pulse Resp BP Pulse Ox
99 21 134/79 94
01/16/24 09:00 01/16/24 09:00 01/16/24 09:00 01/16/24 09:00
<Lucio Nina, DO - Last Filed: 01/16/24 08:26>
Orders/Labs/Results
Orders:
Orders
01/16/24 08:16
Electrocardiogram (*1) Urgent
Reason for Study: Other
Other Reason for Exam: throat pain
EKG- Treatment ONCE
01/16/24 08:24
CT Neck With Iv Contrast Urgent
Comment:
Reason For Exam: difficulty swallowing sensation
01/16/24 08:33
Complete Blood Count/With Diff Urgent
Comprehensive Metabolic Panel Urgent
Troponin I Urgent
01/16/24 08:36
Dexamethasone Sod Phosphate [Decadron] 10 mg IV NOW STA
Abnormal Lab Results
01/16/24
08:33
RBC 4.38 L 10^6/uL
(4.70-6.10)
Hgb 12.9 L g/dL
(13.0-18.0)
MCHC 32.5 L g/dL
(33.0-37.0)
RDW 14.6 H %
(11.5-14.5)
Absolute Monos (auto) 0.8 H 10^3/uL
(0.1-0.6)
Glucose 166 H mg/dl
(70-99)
Total Protein 6.0 L g/dl
(6.3-8.2)
01/16/24 08:33
01/16/24 08:33
Vital Signs
Initial and Last Documented VS:
Initial Vital Signs
Pulse Resp BP Pulse Ox
106 20 136/61 94
01/16/24 08:12 01/16/24 08:12 01/16/24 08:12 01/16/24 08:12
Last Documented Vital Signs
Pulse Resp BP Pulse Ox
99 21 134/79 94
01/16/24 09:00 01/16/24 09:00 01/16/24 09:00 01/16/24 09:00
<Rahul Walter PA-C - Last Filed: 01/16/24 12:39>
MDM/Problems Addressed
Differential Diagnosis Includes:
esophagitis, mass/progression of malignancy, less concern for acute infectious etiology but FUR SCRAPER/retropharyngeal abscess considered, minimal concern for food bolus impaction
MDM/Problems Addressed:
78-year-old male presenting to the emergency department for evaluation of sensation of inability/difficulty swallowing and tolerating secretions. Patient without any fevers or infectious symptoms. He does appear somewhat uncomfortable but in no
acute distress. Will check labs and CT scan of the neck. Patient has progressive lymphadenopathy throughout the chest including the pericardiophrenic angle, azygous esophageal recess and perihilar regions. Question progressive lymphadenopathy as
cause of symptoms as well. I also question esophagitis from recent prolonged steroid administration. requesting we reach out to patient's oncology team as well.
Chronic conditions affecting care: Cancer
<Rahul Walter PA-C - Last Filed: 01/16/24 12:39>
*Radiology
Radiology exam reviewed: radiology read reviewed
*Pulse Oximetry
Patient hypoxic: no
*EKG
Heart Rate: 102
Rate: tachycardiac
Rhythm: sinus
[place]: normal axis
Ischemia: other (inferior changes)
*[place] Worker Helper Interpretation
Rate: tachycardiac
Rhythm: sinus
*Critical Care Note
Total Time (30-74mins, 75-104mins- exclusive of procedures): Not Applicable
Data Reviewed
Review of Other/Old Records Reveals: Records and Radiology Studies
<Rahul Walter PA-C - Last Filed: 01/16/24 12:39>
Patient Management
Discussion with other providers: [facility] Assistant
Escalation/DeEscalation of care consider admission/obs:
Case discussed with heme/onc. agrees with treatment plan at this time. Also okay with us giving 10mg decadron.
Patients CT scan returned without any significant abnormalities that would explain any obstructive process. Patient does note feeling much better since arrival to ED. He is tolerating secretions and water without difficulty. Has apointment with
heme/onc next week. aware of return precautions to ED
ED Attending Note
<Lucio Nina DO - Last Filed: 01/16/24 08:26>
ED Attending Note
Patient seen and examined by attending physician: Yes
I performed the substantive portion of visit, reviewed & personally made and approve the management plan that is documented in note by myself or HANNAH.: Yes
ED Attending Note:
I evaluated the patient at bedside. The patient has ongoing sensation of abnormality anterior neck. I offered to consider steroids however patient would like us to discuss with oncology first. Will send for CT imaging of the neck. I also
reviewed the CT images from 01/14/2024.
-
Portions of this chart may have been created with voice recognition software.� Occasional wrong word or��sound alike� substitutions may have occurred due to the inherent limitations of voice recognition software.
Discharge Plan
Departure
Patient Disposition: Home (Routine Discharge)
Date of Disposition: 01/16/24
Time of Disposition: 10:24
Patient with high blood pressure during this ER visit?: No
Discharge Problem:
Dysphagia
Instructions: Dysphagia (DC)
Prescriptions:
No Action
losartan 50 MG tablet
50 mg PO QPM
Stool Softener 50 MG capsule
50 mg PO HS
omeprazole 40 MG capsule,delayed release(DR/EC)
40 mg PO DAILY
aspirin 81 MG tablet,chewable
81 mg PO QPM
finasteride 5 MG tablet
5 mg PO HS
atorvastatin 40 mg Tablet
40 mg PO HS
amlodipine 5 mg Tablet
5 mg PO HS
multivitamin Tablet
1 tab PO DAILY
famotidine 40 mg Tablet
40 mg PO DAILY
guaifenesin [Mucinex] 1,200 mg Tablet Extended Release 12hr
1,200 mg PO DAILY
metformin 500 mg Tablet Extended Release 24 Hr
1,000 mg PO QPM
Eliquis 5 mg Tablet
5 mg PO BID
morphine 15 mg Tablet Extended Release
15 mg PO Q12H
Dupixent Pen
1 dose SC [id number]
Referrals:
Star Silva MD [Family Provider] -
Interventions
Interventions:
*Risk Screen - Suicide Last Done: 01/16/24 08:14
*Neglect/Abuse Screening Last Done: 01/16/24 08:14
ED- Fall Risk Assessment Last Done: 01/16/24 08:21
*ED COVID-19 Vaccine History Last Done: 01/16/24 08:19
*Nursing Disposition Last Done: 01/16/24 10:46
ED-EENT Assessment Last Done: 01/16/24 08:19
XT-Sttdsh-Bnevrurkxu Assessment Last Done: 01/16/24 08:19
ED- Pulmonary Assessment Last Done: 01/16/24 08:19
ED- Neurological Assessment Last Done: 01/16/24 08:19
ED Swallowing Screen Last Done: 01/16/24 08:19
Discharge Date and Time
Discharge Date/Time: 01/16/24 10:46
Print Language: LAO
[2024-01-16 08:45] LABS: % Basophils 0.3 % (0-2); % Eosinophils 1.7 % (0-6); % Immature Granulocytes 0.4 % (0-0.5); % Monocytes 8.8 % (1.7-9.3); % Neutrophils 65.8 % (42.2-75.2); Absolute Eosinophils 0.2 10^3/uL (0-0.7); Absolute Lymphocytes 2.2 10^3/uL (1.2-3.4); Absolute Monocytes 0.8 10^3/uL (0.1-0.6); Absolute Neutrophils 6.1 10^3/uL (1.4-6.5); Hematocrit 39.7 % (39.0-52.0); Hemoglobin 12.9 g/dL (13.0-18.0); Mean Corp Hgb Conc. 32.5 g/dL (33.0-37.0); Mean Corpuscular Hgb 29.5 pg (27.0-31.0); Mean Corpuscular Volume 90.6 fL (80.0-94.0); Mean Platelet Volume 10.3 fL (7.4-10.4); Nucleated Red Blood Cells % 0 % (-); Platelet Count 152 10^3/uL (130-400); Red Blood Cell Count 4.38 10^6/uL (4.70-6.10); Red Cell Dist. Width 14.6 % (11.5-14.5); White Blood Cell Count 9.3 10^3/uL (4.8-10.8)
[2024-01-16] MEDS: DECADRON 10 MG IV (08:58)
[2024-01-16 09:00] VITALS: BP 134/79
[2024-01-16 09:04] LABS: ALT (SGPT) 38 U/L (0-50); AST (SGOT) 45 U/L (17-59); Albumin 3.6 g/dl (3.5-5.0); Alkaline Phosphatase 72 U/L (38-126); Blood Urea Nitrogen 19 mg/dl (9-20); Calcium 8.7 mg/dl (8.4-10.2); Carbon Dioxide 25 mmol/L (22-30); Chloride 101 mmol/L (98-107); Glucose 166 mg/dl (70-99); Potassium 3.8 mmol/L (3.5-5.1); Sodium 139 mmol/L (135-145); Total Bilirubin 0.7 mg/dl (0.2-1.3); Troponin I 0.016 ng/ml; eGFR > 60.00
== END 2024-01-16 10:46 | disposition home or self-care (01) ==
LOC: EMR 08:03
PROVIDERS: Physician Assistant Medical; EMERGENCY PHYSICIAN Emergency Medicine; FAMILY PHYSICIAN Internal Medicine
DX: R13.10 Dysphagia, unspecified (principal); I10 Essential (primary) hypertension; E11.9 Type 2 diabetes mellitus without complications; I25.10 Atherosclerotic heart disease of native coronary artery without angina pectoris; K21.9 Gastro-esophageal reflux disease without esophagitis; R07.89 Other chest pain; Z79.52 Long term (current) use of systemic steroids; Z87.891 Personal history of nicotine dependence
CPT/HCPCS: 99284; 70491; 80053; 84484; 85025; 93005; Q9967

== ENCOUNTER → 2024-01-28 15:10 | Outpatient (REF) | payer MEDICARE, BC, SELFPAY ==
[2024-01-28 09:54] LABS: % Basophils 0.3 % (0-2); % Eosinophils 0.7 % (0-6); % Immature Granulocytes 0.4 % (0-0.5); % Lymphocytes 35.7 % (20.5-51.1); % Neutrophils 54.9 % (42.2-75.2); Absolute Eosinophils 0.1 10^3/uL (0-0.7); Absolute Immature Granulocytes 0.1 10^3/uL (0-0.05); Absolute Lymphocytes 4.3 10^3/uL (1.2-3.4); Absolute Neutrophils 6.6 10^3/uL (1.4-6.5); Hematocrit 45.4 % (39.0-52.0); Hemoglobin 14.6 g/dL (13.0-18.0); Mean Corp Hgb Conc. 32.2 g/dL (33.0-37.0); Mean Corpuscular Hgb 29.1 pg (27.0-31.0); Mean Corpuscular Volume 90.6 fL (80.0-94.0); Mean Platelet Volume 10.2 fL (7.4-10.4); Nucleated Red Blood Cells % 0 % (-); Platelet Count 281 10^3/uL (130-400); Red Blood Cell Count 5.01 10^6/uL (4.70-6.10); Red Cell Dist. Width 14.5 % (11.5-14.5); White Blood Cell Count 11.9 10^3/uL (4.8-10.8)
[2024-01-28 11:17] LABS: ALT (SGPT) 53 U/L (0-50); AST (SGOT) 47 U/L (17-59); Albumin 4.1 g/dl (3.5-5.0); Alkaline Phosphatase 80 U/L (38-126); Blood Urea Nitrogen 28 mg/dl (9-20); Calcium 9.2 mg/dl (8.4-10.2); Carbon Dioxide 23 mmol/L (22-30); Chloride 98 mmol/L (98-107); Glucose 133 mg/dl (70-99); Potassium 3.7 mmol/L (3.5-5.1); Sodium 140 mmol/L (135-145); Total Bilirubin 0.8 mg/dl (0.2-1.3); Total Protein 6.8 g/dl (6.3-8.2); eGFR > 60.00
[2024-01-28 11:46] LABS: Creatine Phosphokinase 27 U/L (55-170)
== END ==
LOC: OIDL 15:10
PROVIDERS: ATTENDING PHYSICIAN Internal Medicine Hematology & Oncology
DX: C34.11 Malignant neoplasm of upper lobe, right bronchus or lung (principal); J91.0 Malignant pleural effusion; G89.3 Neoplasm related pain (acute) (chronic); L29.9 Pruritus, unspecified; L50.9 Urticaria, unspecified
CPT/HCPCS: 80053; 82550; 85025

== ENCOUNTER → 2024-01-31 11:03 | Outpatient (REF) | payer MEDICARE, BC, SELFPAY | LOC: PAVMRI 11:03 | PROVIDERS: ATTENDING PHYSICIAN Radiology Radiation Oncology | DX: C79.31 Secondary malignant neoplasm of brain (principal); C79.49 Secondary malignant neoplasm of other parts of nervous system | CPT/HCPCS: 70553; A9575 ==